=== PATIENT | female | born 1995 | race Asian ===

== ENCOUNTER 2020-02-22 14:18 | Emergency (ER) | payer OTHER ==
[~2020-02-22] VITALS: Ht 154.9 cm; Wt 55.5 kg
[2020-02-22 14:41] VITALS: BP 120/67
--- NOTE | 2020-02-22 15:15 | NUR ---
Patient/Caregiver given discharge instructions and they have confirmed that they understand the instructions. Patient ambulatory with steady gait.
== END 2020-02-22 15:20 | disposition home or self-care (01) ==
LOC: ED 14:54
DX: J06.9 Acute upper respiratory infection, unspecified (principal)
CPT/HCPCS: 99281